=== PATIENT | male | born 1945 | race Caucasian/White ===

== ENCOUNTER → 2017-11-17 | Outpatient (REF) ==
[~2017-11-17] MED LIST: ASPIRIN E.C. 8181 MG PO; CLOPIDOGREL PO; CRESTOR PO; ISOSORBIDE MONO60 MG PO; TOPROL PO; ZIAC 10/6.25M1 UDTAB PO; [UNRECOGNIZED DRUG - OTHER] SL
[2017-11-17 18:43] LABS: TROPONIN-I < 0.012 ng/mL (0.000-0.034)
== END ==
LOC: ZLAB.WCH 18:17
PROVIDERS: Family Medicine
DX: Z01.89 Encounter for other specified special examinations (principal)

== ENCOUNTER 2021-07-31 03:54 | Inpatient (IN) | payer MEDICARE, BC ==
[~2021-07-31] VITALS: Ht 175.3 cm; Wt 96.9 kg
[2021-07-31] VITALS (12 sets, daily range): BP systolic 110–151; BP diastolic 58–81; PULSE 66–81; TEMP 98–98.4
[~2021-07-31 03:54] MED LIST changes: -CLOPIDOGREL PO; +ISOSORBIDE MON120 MG PO; -ISOSORBIDE MONO60 MG PO; +PLAVIX 75MG TAB75 MG PO
[2021-07-31 04:17] LABS: BASO % 0.5 % (0.0-2.0); EOS % 0.6 % (0-4.0); GRAN # 4.5 K/mm3 (1.4-6.5); GRAN % 73.3 % (42.2-75.2); HEMOGLOBIN 10.3 g/dl (13.5-18.0); LYMPH # 1.2 K/mm3 (1.2-3.4); LYMPH % 19.6 % (20.0-51.0); MEAN CELL VOLUME 104 fl (80.0-100.0); MEAN CORPUSCULAR HEMOGLOBIN 33 pg (27.0-31.0); MEAN CORPUSCULAR HGB CONC 32 g/dl (33.0-37.0); MEAN PLATELET VOLUME 9.5 fl (7.4-10.4); MONO # 0.4 K/mm3 (0.1-0.6); MONO % 5.7 % (1.7-9.3); PLATELET COUNT 230 K/mm3 (130-400); RED BLOOD COUNT 3.09 M/mm3 (4.20-5.60); REDCELL DISTRIBUTION WIDTH-CV 13.5 % (11.5-14.5)
[2021-07-31 04:33] LABS: INR 1.1 (0.8-3.0); PROTHROMBIN TIME 12.5 SECONDS (9.7-12.8)
[2021-07-31 04:35] LABS: PARTIAL THROMBOPLASTIN TIME 20.4 SECONDS (26.0-37.0)
[2021-07-31 04:55] LABS: ALANINE AMINOTRANSFERASE 21 U/L (0-55); ALBUMIN 3.4 gm/dL (3.4-4.8); ALKALINE PHOSPHATASE 27 U/L (40-150); ANION GAP 7 mmol/L (7-16); AST,SGOT 15 U/L (5-34); BILIRUBIN,TOTAL 0.4 mg/dL (0.2-1.2); BLOOD UREA NITROGEN 32 mg/dL (8-26); CALCIUM 8.2 mg/dL (8.4-10.2); CARBON DIOXIDE 22 mmol/L (23-31); CHLORIDE 108 mmol/L (98-107); CREATININE, serum 0.87 mg/dL (0.72-1.25); GLUCOSE 194 mg/dL (70-99); POTASSIUM 4.5 mmol/L (3.5-4.5); SODIUM 137 mmol/L (136-145); TOTAL PROTEIN 5.9 gm/dL (6.2-8.1)
[2021-07-31 05:09] LABS: TROPONIN-I < 0.010 ng/mL (0.00-0.033)
[2021-07-31] MEDS ORDERED: PRALUENT P150 MG/1 M SQ (05:30)
[2021-07-31] MEDS ORDERED: OMEGA-3 1000 MG1 CAP PO (05:32)
[2021-07-31] MEDS ORDERED: TRICOR145 MG PO (05:33)
[2021-07-31] MEDS ORDERED: ADVIL LIQUI-GE200 MG PO (05:33)
[2021-07-31] MEDS ORDERED: COZAAR100 MG PO (05:36)
[2021-07-31] MEDS ORDERED: IMDUR 60MG60 MG/TAB PO (05:36)
[2021-07-31] MEDS ORDERED: MULTI VITAMINS1 TAB PO (05:37)
[2021-07-31] MEDS ORDERED: OSCAL 500 TAB500 MG PO (08:26)
[2021-07-31] MEDS ORDERED: VITAMIN D 400400 IU PO (08:27)
--- NOTE | 2021-07-31 09:34 | NUR ---
T[facility] met with patient to discuss discharge plan. Patient lives in [place] with his , Sangita (ph#[phone]) and sees Dr. Chávez for primary care. Patient obtains medications from [facility] with no difficulties. Patient uses oxygen at night that he purchased online and no other DME. Patient is independent with [facility] and plans to return home upon discharge. Patient believes he has completed DPOA-HC that designates his , Sangita but there is no copy in EMR. Discharge Plan: Home
--- NOTE | 2021-07-31 09:47 | NUR ---
Patient admitted to room 343 from the ER. Admission paperwork completed, med rec updated. Ivf started to R[facility]. Patient was up to the bathroom & had a large loose dark red stool, does smell like a GI bleed. I called Endo and they were made aware of orders for a scope, spoke with Wilbert mckay for 1230. called and update given. Will let patietn rest, he reports being tired.
--- NOTE | 2021-07-31 11:32 | NUR ---
Patietn sleeping soundly, will await scope
--- NOTE | 2021-07-31 12:51 | NUR ---
Patient to endo with margo
--- NOTE | 2021-07-31 13:25 | NUR ---
Patient has returned from endo. Report from Wilbert. Patient awake & alert. His at bedside. Vss on room air.
--- NOTE | 2021-07-31 14:40 | NUR ---
called patient requesting home Imdur, orders obtained. Patient may also have ice chips.
--- NOTE | 2021-07-31 16:47 | NUR ---
Called per patient request. spoke to via phone, update given. I called Nesha Langley and update given. Medication list updated. Patient provided with clear liquids broth & tea. He was up to the bathroom & voided, no stool. Will monitor.
--- NOTE | 2021-07-31 21:20 | NUR ---
PT IN BED, HAS OXYGEN ON AT 2L/NC PER HIS HOME ROUTINE. TAKES HS MEDS WITHOUT DIFFICULTY. INDEPENDENT IN ROOM. HAS HAD NO STOOLS SINCE SCOPE PROCEDURE. SL TO RT HAND, FLUSHES WELL. PASSING ODIFEROUS FLATUS. DENIES PAIN AT THIS TIME. NO N/V SO FAR THIS SHIFT. TAKING CLEAR LIQUIDS WITHOUT PROBLEMS.
[2021-08-01 03:02] VITALS: BP 157/76; PULSE 75; TEMP 97.9
[2021-08-01 06:46] LABS: BASO % 0.6 % (0.0-2.0); EOS % 0.7 % (0-4.0); GRAN # 3.8 K/mm3 (1.4-6.5); GRAN % 68.8 % (42.2-75.2); LYMPH # 1.2 K/mm3 (1.2-3.4); LYMPH % 22.1 % (20.0-51.0); MEAN CELL VOLUME 101 fl (80.0-100.0); MEAN CORPUSCULAR HGB CONC 33 g/dl (33.0-37.0); MEAN PLATELET VOLUME 9.8 fl (7.4-10.4); MONO # 0.4 K/mm3 (0.1-0.6); MONO % 7.4 % (1.7-9.3); PLATELET COUNT 196 K/mm3 (130-400); REDCELL DISTRIBUTION WIDTH-CV 13.5 % (11.5-14.5)
[2021-08-01 06:49] LABS: HEMATOCRIT 26.2 % (42.0-52.0); HEMOGLOBIN 8.6 g/dl (13.5-18.0); MEAN CORPUSCULAR HEMOGLOBIN 33 pg (27.0-31.0)
[2021-08-01 07:02] LABS: CALCIUM 9.5 mg/dL (8.4-10.2); CREATININE, serum 0.81 mg/dL (0.72-1.25); POTASSIUM 4.2 mmol/L (3.5-4.5)
--- NOTE | 2021-08-01 08:00 | NUR ---
PATIENT IS A&O AND AMBULATING IN ROOM INDEPENDENTLY. PATIENT NOW RESTING IN BEDSIDE CHAIR. NO C/O PAIN OR NAUSEA. PATIENT REPORTS NO BLOOD STOOLS YESTERDAY OR TODAY. HE IS PASSING GAS. ABD IS ROUND, SOFT AND WITH POSITIVE BOWL SOUNDS. PATIENT TOLERATING CLEARS WELL. RIGHT HAND IV TO INT. HEAD TO TOE ASSESSMENT COMPLETE, SEE CHARTING. AM MEDS GIVEN. NO OTHER NEEDS. CALL LIGHT IN REACH.
[2021-08-01 08:03] VITALS: BP 157/78; PULSE 76; TEMP 97.8
[2021-08-01 12:16] VITALS: BP 142/60; PULSE 74; TEMP 97.7
[2021-08-01 13:35] LABS: HEMATOCRIT 26.5 % (42.0-52.0); HEMOGLOBIN 8.9 g/dl (13.5-18.0)
--- NOTE | 2021-08-01 14:35 | NUR ---
PATIENT IS DISCHARGING HOME VIA WC TO PERSONAL VEHICLE WITH . GAVE DISCHARGE INSTRUCTIONS AND DISCUSSED F/U APTS. ANSWERED QUESTIONS/CONCERNS. PCT DC'D RIGHT HAND IV, COVERED SITE WITH GAUZE & COBAN. PATIENT IS DRESSED, PACKED AND DISCHARGED.
== END 2021-08-01 14:30 | disposition home or self-care (01) | DRG 379 ==
LOC: COL.ER 03:54 → SURG 06:38
PROVIDERS: Emergency Medicine; Internal Medicine Gastroenterology; Physician Assistant; ADMIT Student in an Organized Health Care Education/Training Program
PROC: 0DB68ZX Excision of Stomach, Via Natural or Artificial Opening Endoscopic, Diagnostic (ICD-10-PCS; principal; 2021-07-31 12:30)
DX: K25.4 Chronic or unspecified gastric ulcer with hemorrhage (principal); I25.10 Atherosclerotic heart disease of native coronary artery without angina pectoris; Z95.5 Presence of coronary angioplasty implant and graft; Z95.1 Presence of aortocoronary bypass graft; I10 Essential (primary) hypertension; Z79.82 Long term (current) use of aspirin; Z87.01 Personal history of pneumonia (recurrent); D50.0 Iron deficiency anemia secondary to blood loss (chronic); R73.9 Hyperglycemia, unspecified; E78.5 Hyperlipidemia, unspecified
CPT/HCPCS: 99222-AI; 99239; C9113; J2270; J2405; J2704; J7030; Q9967

== ENCOUNTER 2021-08-03 06:07 | Emergency (ER) | payer MEDICARE, BC ==
[~2021-08-03] VITALS: Ht 175.3 cm; Wt 90.9 kg
[2021-08-03] VITALS (8 sets, daily range): BP systolic 101–142; BP diastolic 45–77; PULSE 68–81; TEMP 97.7–98.9
[~2021-08-03 06:07] MED LIST changes: +ADVIL LIQUI-GE200 MG PO; +COZAAR100 MG PO; +IMDUR 60MG60 MG/TAB PO; +MULTI VITAMINS1 TAB PO; +OMEGA-3 1000 MG1 CAP PO; +OSCAL 500 TAB500 MG PO; +PRALUENT P150 MG/1 M SQ; +TRICOR145 MG PO; +VITAMIN D 400400 IU PO
[2021-08-03 06:27] LABS: BASO % 0.4 % (0.0-2.0); EOS % 0.3 % (0.0-4.0); GRAN # 4.9 K/mm3 (1.4-6.5); GRAN % 68.1 % (42.2-75.2); LYMPH # 1.7 K/mm3 (1.2-3.4); MEAN CELL VOLUME 100 fl (80.0-100.0); MEAN CORPUSCULAR HGB CONC 34 g/dl (33.0-37.0); MEAN PLATELET VOLUME 9.6 fl (7.4-10.4); MONO # 0.6 K/mm3 (0.1-0.6); MONO % 8.1 % (1.7-9.3); PLATELET COUNT 223 K/mm3 (130-400); REDCELL DISTRIBUTION WIDTH-CV 13.5 % (11.5-14.5)
[2021-08-03 06:34] LABS: HEMOGLOBIN 7.4 g/dl (13.5-18.0); MEAN CORPUSCULAR HEMOGLOBIN 34 pg (27-31)
[2021-08-03 06:52] LABS: ALBUMIN 3.3 gm/dL (3.4-4.8); BILIRUBIN,TOTAL 0.4 mg/dL (0.2-1.2); C-REACTIVE PROTEIN 0.22 mg/dL (0.00-0.50); CALCIUM 8.2 mg/dL (8.4-10.2); CREATININE, serum 0.98 mg/dL (0.72-1.25); POTASSIUM 4.1 mmol/L (3.5-4.5); TOTAL PROTEIN 5.7 gm/dL (6.2-8.1)
[2021-08-03 09:04] LABS: HEMATOCRIT 21.1 % (42.0-52.0); HEMOGLOBIN 7.3 g/dl (13.5-18.0)
[2021-08-03 13:15] LABS: HEMATOCRIT 22.9 % (42.0-52.0); HEMOGLOBIN 7.8 g/dl (13.5-18.0)
== END 2021-08-03 16:41 | disposition short-term general hospital (02) ==
LOC: COL.ER 06:07
PROVIDERS: Emergency Medicine; Family Medicine
DX: K92.2 Gastrointestinal hemorrhage, unspecified (principal); D64.9 Anemia, unspecified; K31.9 Disease of stomach and duodenum, unspecified; I25.10 Atherosclerotic heart disease of native coronary artery without angina pectoris; I10 Essential (primary) hypertension
CPT/HCPCS: C9113; J2405; J7120; P9016